=== PATIENT | female | born 1960 | race Caucasian/White ===

== ENCOUNTER 2022-04-03 08:19 | Day surgery (SDC) | payer BC ==
[2022-04-03] MEDS ORDERED: Lactated Ringers 1,000 ML IV SCH (08:30)
[2022-04-03] MEDS ORDERED: Midazolam 1 MG/ML 2 ML SDV ONE (09:05)
[2022-04-03] MEDS ORDERED: fentaNYL 50 MCG/ML SDV ONE (09:05)
[2022-04-03] MEDS ORDERED: Propofol 200 MG/20 ML SDV ONE ×2 (09:06→10:24)
[2022-04-03 11:17] VITALS: BP 137/74; PULSE 53
== END 2022-04-03 11:37 | disposition home or self-care (01) ==
LOC: JP.SDS 08:19
PROVIDERS: ATTEND Family Medicine
DX: D12.7 Benign neoplasm of rectosigmoid junction (principal); D12.5 Benign neoplasm of sigmoid colon; D12.3 Benign neoplasm of transverse colon; E03.9 Hypothyroidism, unspecified; F17.200 Nicotine dependence, unspecified, uncomplicated; Z79.899 Other long term (current) drug therapy
CPT/HCPCS: 45380; 88305; J2250; J2704; J3010; J7120

== ENCOUNTER 2025-03-25 07:40 | Day surgery (SDC) | payer BC ==
[~2025-03-25 07:40] MED LIST: Midazolam 1 MG/ML 2 ML SDV ONE; Propofol 200 MG/20 ML SDV ONE; fentaNYL 50 MCG/ML SDV ONE
[2025-03-25] MEDS: Lactated Ringers 1,000 ML IV SCH (08:17)
[2025-03-25] MEDS ORDERED: Propofol 200 MG/20 ML SDV ONE (09:18)
[2025-03-25 10:59] VITALS: BP 133/97; PULSE 69
== END 2025-03-25 11:11 | disposition home or self-care (01) ==
LOC: JP.SDS 07:40
PROVIDERS: ATTEND Surgery
DX: Z12.11 Encounter for screening for malignant neoplasm of colon (principal); K57.30 Diverticulosis of large intestine without perforation or abscess without bleeding; E03.9 Hypothyroidism, unspecified; Z87.891 Personal history of nicotine dependence; Z79.890 Hormone replacement therapy; Z79.899 Other long term (current) drug therapy; Z86.0100 Personal history of colon polyps, unspecified
CPT/HCPCS: J2250; J2704; J3010; J7120